=== PATIENT | male | born 1980 | race Caucasian/White ===

== ENCOUNTER 2020-04-17 14:32 | Emergency (ER) | payer OTHER ==
[~2020-04-17 14:32] MED LIST: FLONASE ALLER15.8 ML; IBUPROFEN800 MG PO; NORCO 5-325 TA1 EACH PO; PAXIL10 MG PO; PRILOSEC20 MG PO; ZOFRAN4 MG PO
[2020-04-17] MEDS ORDERED: KEFLEX250 MG PO (18:07)
== END 2020-04-17 18:50 | disposition home or self-care (01) ==
LOC: FER 14:32
DX: S68.623A Partial traumatic transphalangeal amputation of left middle finger, initial encounter (principal); S61.211A Laceration without foreign body of left index finger without damage to nail, initial encounter; W29.8XXA Contact with other powered hand tools and household machinery, initial encounter; Y92.009 Unspecified place in unspecified non-institutional (private) residence as the place of occurrence of the external cause
CPT/HCPCS: 73130